=== PATIENT | female | born 1950 | race Two or more races ===

== ENCOUNTER 2018-03-18 09:54 | Outpatient (CLI) | payer OTHER | END 2018-03-18 17:26 | disposition home or self-care (01) | LOC: LAB 09:54 | DX: D64.89 Other specified anemias (principal); E88.89 Other specified metabolic disorders; D68.8 Other specified coagulation defects; N39.0 Urinary tract infection, site not specified; R82.79 Other abnormal findings on microbiological examination of urine; I49.8 Other specified cardiac arrhythmias; Z76.89 Persons encountering health services in other specified circumstances; A49.02 Methicillin resistant Staphylococcus aureus infection, unspecified site ==

== ENCOUNTER 2018-04-01 05:42 | Day surgery (SDC) | payer OTHER | END 2018-04-01 15:19 | disposition home or self-care (01) | LOC: CIR.AMB 05:42 | DX: M75.121 Complete rotator cuff tear or rupture of right shoulder, not specified as traumatic (principal); M75.21 Bicipital tendinitis, right shoulder ==

== ENCOUNTER 2019-03-16 07:10 | Day surgery (SDC) | payer OTHER | END 2019-03-16 13:00 | disposition home or self-care (01) | LOC: AMB-ENDOS 07:10 | DX: D12.2 Benign neoplasm of ascending colon (principal); D12.4 Benign neoplasm of descending colon ==

== ENCOUNTER 2019-04-14 07:56 | Outpatient (CLI) | payer OTHER ==
[2019-04-14] MEDS ORDERED: EFFEXOR XR150 MG PO (11:46)
[2019-04-14] MEDS ORDERED: SYNTHROID112 MCG PO (11:46)
[2019-04-14] MEDS ORDERED: ALDACTONE25 MG PO (11:46)
[2019-04-14] MEDS ORDERED: TOPROL XL25 M1 PO (11:46)
[2019-04-14] MEDS ORDERED: LAMICTAL100 M1 PO (11:47)
== END 2019-04-14 08:05 | disposition home or self-care (01) ==
LOC: LAB 07:56
DX: Z76.89 Persons encountering health services in other specified circumstances (principal); D64.89 Other specified anemias; E88.89 Other specified metabolic disorders; D68.8 Other specified coagulation defects; N39.0 Urinary tract infection, site not specified; Z22.322 Carrier or suspected carrier of Methicillin resistant Staphylococcus aureus; E13.69 Other specified diabetes mellitus with other specified complication; I49.8 Other specified cardiac arrhythmias

== ENCOUNTER → 2019-05-12 | Day surgery (SDC) | payer OTHER ==
[~2019-05-12] MED LIST: ALDACTAZIDE 251 EACH PO; ALDACTONE25 MG PO; EFFEXOR XR150 MG PO; LAMICTAL100 M1 PO; SYNTHROID112 MCG PO; TOPROL XL25 M1 PO
== END | disposition home or self-care (01) ==
LOC: CIR.AMB 07:00 → EDSTATUS 10:30 → SURG 10:30
DX: M75.122 Complete rotator cuff tear or rupture of left shoulder, not specified as traumatic (principal); M75.22 Bicipital tendinitis, left shoulder; M19.012 Primary osteoarthritis, left shoulder